=== PATIENT | female | born 1985 | race American Indian/Alaskan Native ===

== ENCOUNTER 2018-04-26 16:16 | Emergency (ER) | payer OTHER ==
[2018-04-26 20:02] VITALS: BP 137/89
[2018-04-26] MEDS ORDERED: ULTRAM PO ONE (20:23)
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
== END 2018-04-26 20:44 | disposition home or self-care (01) ==
LOC: ED 16:16
DX: S39.012A Strain of muscle, fascia and tendon of lower back, initial encounter (principal); F17.200 Nicotine dependence, unspecified, uncomplicated; V79.59XA Passenger on bus injured in collision with other motor vehicles in traffic accident, initial encounter; Y93.89 Activity, other specified; Y92.89 Other specified places as the place of occurrence of the external cause; Y99.8 Other external cause status
CPT/HCPCS: 99282